=== PATIENT | female | born 1950 | race Caucasian/White ===

== ENCOUNTER 2017-05-13 10:54 | Emergency (ER) | payer MEDICARE, OTHER ==
[2017-05-13 11:02] VITALS: BP 180/87
--- NOTE | 2017-05-13 12:34 | ED Physician Documentation ---
History of Present Illness - Stated complaint Stated Complaint: BEE STING - Chief complaint Chief Complaint: Allergic Rx - History obtained from History obtained from: Patient - Additonal information Additional information: Appearing female who presents with a complaint of left foot swelling. She was stung by a bee 3 days ago and is concerned because of swelling of the left foot continues despite Benadryl and loratadine. She has no other systemic complaints. She did not have any symptoms of anaphylaxis at the time of the envenomation and has no history of any significant allergic reactions. Review of systems: For pertinent positive and negatives in the review of systems please see the history of present illness, otherwise all other systems have been reviewed and are negative. Dragon disclaimer: Parts of this medical record were created using voice recognition technology. Because of the inherent limitations of this system, occasional same sounding word substitutions do occur and persist despite proofreading. Please read the document for context. Review of Systems Musculoskeletal: reports: Extremity swelling PD PAST MEDICAL HISTORY - Past Medical History Past Medical History: Yes Cardiovascular: Hypertension - Past Surgical History Past Surgical History: Yes General: Appendectomy - Present Medications Home Medications: Ambulatory Orders Medication Instructions Recorded Confirmed Atorvastatin [Lipitor] 10 mg ORAL DAILY 05/13/17 05/13/17 Citalopram [CeleXA] 10 mg PO ONCE 05/13/17 05/13/17 Losartan [Cozaar] 25 mg PO ONCE 05/13/17 05/13/17 - Allergies Allergies/Adverse Reactions: Allergies Allergy/AdvReac Type Severity Reaction Status Date / Time Cephalosporins Allergy Rash Verified 05/13/17 11:01 Penicillins Allergy Anaphylaxis Verified 05/13/17 11:01 Sulfa (Sulfonamide Allergy Rash Verified 05/13/17 11:01 Antibiotics) tetracycline Allergy Rash Verified 05/13/17 11:01 - Social History Does the pt smoke?: No Smoking Status: Never smoker Does the pt drink ETOH?: Yes Does the pt have substance abuse?: No - Immunizations Immunizations are current?: Yes - POLST Patient has POLST: No PD ED PE NORMAL - Vitals Vital signs reviewed: Yes - General General: Alert and oriented X 3, No acute distress, Well developed/nourished - Derm Derm: Normal color - Extremities Extremities: Other (Examination of her left foot reveals a small amount of soft tissue swelling diffusely involving the foot but not the ankle. There is area of minimal erythema between her great and second toe.) - Neuro Neuro: Alert and oriented X 3 - Psych Psych: Normal mood, Normal affect Results - Vitals Vitals: Vital Signs - 24 hr 05/13/17 10:57 Temperature 36.8 C Heart Rate 69 Respiratory 16 Rate Blood Pressure 180/87 H O2 Saturation 99 Oxygen O2 Source Room air PD MEDICAL DECISION MAKING - ED course Complexity details: reviewed old records ED course: This patient has normal soft tissue swelling and erythema following a bee sting 3 days ago. Her physical exam fits the course of the natural progression of a distal extremity envenomation. I am not concerned about cellulitis. I recommended continued antihistamines, rest, and elevation and I think she should be seeing improvement soon. Disposition: To home Clinical impression: 1. Bee sting left foot with local allergic reaction Departure - Departure Disposition: 01 Home, Self Care Clinical Impression: Insect bites and stings Qualifiers: Encounter type: initial encounter Injury intent: accidental or unintentional Qualified Code(s): T63.481A - Toxic effect of venom of other arthropod, accidental (unintentional), initial encounter Condition: Good Instructions: ED Allergic Reaction Local Other
== END 2017-05-13 12:55 | disposition home or self-care (01) ==
LOC: ED 10:54
DX: T63.441A Toxic effect of venom of bees, accidental (unintentional), initial encounter (principal); I10 Essential (primary) hypertension
CPT/HCPCS: 99282; 99283

== ENCOUNTER 2024-01-11 23:46 | Emergency (ER) | payer MEDICARE, OTHER ==
[2024-01-12 00:26] LABS: BASOPHILS % (AUTO) 0.8 %; EOSINOPHILS % (AUTO) 0.2 %; HCT - HEMATOCRIT 45.5 % (37.0-47.0); HGB - HEMOGLOBIN 15.1 g/dL (12.0-16.0); LYMPHOCYTES # (AUTO) 2.4 10^3/uL (1.5-3.5); MEAN CORPUSCULAR HGB CONC 33.2 g/dL (32.0-36.0); MEAN CORPUSCULAR VOLUME 99.3 fL (81.0-99.0); MEAN PLATELET VOLUME 8.8 fL (7.9-10.8); MONOCYTES # (AUTO) 0.4 10^3/uL (0.0-1.0); MONOCYTES % (AUTO) 8.7 %; NEUTROPHILS % (AUTO) 41.1 %; PLT - PLATELET COUNT 237 10^3/uL (130-450); RED BLOOD COUNT 4.58 10^6/uL (4.20-5.40); RED CELL DISTRIBUTION WIDTH 12.5 % (12.0-15.0); WHITE BLOOD COUNT 4.8 x10^3/uL (4.8-10.8)
--- NOTE | 2024-01-12 00:26 | ED Physician Documentation ---
History of Present Illness - Stated complaint Stated Complaint: AFIB - Chief complaint Chief Complaint: Cardiac - History obtained from History obtained from: Patient - Additonal information Additional information: HPI from patient. Patient complains of "I am having an episode of A-fib" (per patient). Patient has history of atrial fibrillation and she takes Eliquis for this. She denies palpitations, chest pain, dyspnea, lightheadedness. Her description sounds like her atrial fibrillation is paroxysmal/episodic, and manifests (as it did tonight) with pain in her upper anterior neck and jaw (bilaterally). She says she also has an Apple Watch which alerts her to these episodes. She says the Apple watch was indicating this evening that her heart rates were as high as 134 bpm. PD PAST MEDICAL HISTORY - Past Medical History Past Medical History: Yes Cardiovascular: Hypertension, Atrial fibrillation - Past Surgical History Past Surgical History: Yes General: Appendectomy - Present Medications Home Medications: Ambulatory Orders Medication Instructions Recorded Confirmed Atorvastatin [Lipitor] 10 mg ORAL DAILY 05/13/17 01/12/24 Citalopram [CeleXA] 10 mg PO ONCE 05/13/17 05/13/17 Losartan [Cozaar] 25 mg PO ONCE 05/13/17 01/12/24 Apixaban [Eliquis] 5 mg PO BID 01/12/24 01/12/24 - Allergies Allergies/Adverse Reactions: Allergies Allergy/AdvReac Type Severity Reaction Status Date / Time Cephalosporins Allergy Rash Verified 01/11/24 23:59 Penicillins Allergy Anaphylaxis Verified 01/11/24 23:59 Sulfa (Sulfonamide Allergy Rash Verified 01/11/24 23:59 Antibiotics) tetracycline Allergy Rash Verified 01/11/24 23:59 - Social History Does the pt smoke?: No Smoking Status: Never smoker Does the pt drink ETOH?: Yes Does the pt have substance abuse?: No - Immunizations Immunizations are current?: Yes - POLST Patient has POLST: No PD ED PE NORMAL - Vitals Vital signs reviewed: Yes - General General: Alert and oriented X 3, No acute distress, Well developed/nourished - Respiratory Respiratory: No respiratory distress, Clear bilaterally - Abdomen Abdomen: Soft, Non tender - Extremities Extremities: No edema - Neuro Neuro: Alert and oriented X 3 PD ED PE EXPANDED - Cardiac Cardiac: Tachy, Irregularly irregular Results - Vitals Vitals: Oxygen O2 Source Room air - EKG (time done) #1 EKG releavant findings:: EKG personally interpreted by author of this note. Relevant findings are: Rate: Rate (enter#) (120) Rhythm: Atrial flutter [place]: LAD Intervals: Prolonged QT Ischemia: Q waves (II, III, aVF) Compare to prior EKG: Old EKG unavailable #2 EKG releavant findings:: EKG personally interpreted by author of this note. Relevant findings are: Rate: Rate (enter#) (52) Rhythm: Atrial fibrillation (no discernible p waves) [place]: LAD Intervals: Prolonged QT, Other (NSVICD with LAD) Ischemia: Normal ST segments, Q waves - Labs Labs: Laboratory Tests 01/12/24 01/12/24 01/12/24 00:23 00:23 00:23 WBC 4.8 RBC 4.58 Hgb 15.1 Hct 45.5 MCV 99.3 H MCH 33.0 H MCHC 33.2 RDW 12.5 Plt Count 237 MPV 8.8 Neut # (Auto) 2.0 Lymph # (Auto) 2.4 Door # (Auto) 0.4 Eos # (Auto) 0.0 Baso # (Auto) 0.0 Absolute Nucleated RBC 0.00 Nucleated RBC % 0.0 Sodium 143 Potassium 3.8 Chloride 107 Carbon Dioxide 24 Anion Gap 12.0 BUN 16 Creatinine 0.8 Estimated GFR (MDRD) 70 L Glucose 108 H Calcium 10.0 Total Bilirubin 1.3 H AST 22 ALT 28 Alkaline Phosphatase 59 Troponin I High Sens 4.7 Total Protein 7.4 Albumin 4.9 Globulin 2.5 Albumin/Globulin Ratio 2.0 Lipase 46 TSH 2.94 - Rads (name of study) chest xray Relevant Findings:: Prelim report reviewed, See rad report PD Medical Decision Making - ED course Complexity details: re-evaluated patient, considered differential, d/w patient ED course: Essentially normal CBC (two red cell indices are abnormal in otherwise normal CBC), ER abdominal panel, and normal TSH and hs-cTn. Unremarkable CXR. MARANDA on arrival, given 15mg IV cardizem with modest and transient improvement, but responded well to second dose of IV cardizem (10mg) which resulted in 52 bpm on monitor. Given 1 liter NS for a few soft BP readings but no hypotensive readings during stay. Patient says her resting heart rate is typically in the mid-50s bpm. The second/repeat EKG nearly appears to be sinus bradycardia, but a few beats don't quite march out and I do not confidently see discernible p waves. However, given that she is already on appropriate anticoagulation for atrial fibrillation, there would be no change in management at this point whether she is back in sinus rhythm vs rate-controlled atrial fibrillation. Results d/w patient, return precautions reviewed, advised to follow up with her cardiovascular radiologic technologist. Departure - Departure Disposition: Home, Self Care Clinical Impression: Atrial fibrillation Qualifiers: Atrial fibrillation type: paroxysmal Qualified Code(s): I48.0 - Paroxysmal atrial fibrillation Condition: Good Instructions: ED Afib Comments: There were no concerning findings on tonight's blood tests and chest xray. Both the initial EKG as well as the repeat EKG are consistent with atrial fibrillation, but the initial high heart rate improved significantly after the second dose of diltiazem (rate-controlling medication given through your IV). Since you are already on appropriate blood-thinning medication, it is not important that we get you out of atrial fibrillation as long as the rate is controlled, that you're test results do not suggest a more serious problem (such as a heart attack), and that your blood pressures are within the normal range. Forms: PCP List Discharge Date/Time: 01/12/24 03:40
--- NOTE | 2024-01-12 00:41 | XRAY Report ---
PROCEDURE: Chest 1V INDICATIONS: Chest pain TECHNIQUE: One view of the chest was acquired. COMPARISON: None. FINDINGS: Surgical changes and devices: None. Lungs and pleura: Low lung volumes. No consolidation or pleural effusion Mediastinum: Normal heart size Bones and chest wall: Right humeral surgical anchors. Degenerative changes. IMPRESSION: Limited single view portable radiograph with low lung volumes. No acute abnormality. Reviewed by: Abel Gill MD on 01/12/2024 12:40 AM PDT Approved by: Abel Gill MD on 01/12/2024 12:40 AM PDT Station ID: [id number]
[2024-01-12 00:45] LABS: ALBUMIN 4.9 g/dL (3.2-5.5); BILIRUBIN,TOTAL 1.3 mg/dL (0.2-1.0); CREATININE 0.8 mg/dL (0.6-1.3); POTASSIUM 3.8 mmol/L (3.5-4.5); TOTAL PROTEIN 7.4 g/dL (6.4-8.9)
[2024-01-12 00:47] LABS: TROPONIN I HIGH SENSITIVITY 4.7 ng/L (2.3-14.8)
[2024-01-12] MEDS: diltiaZEM INJ 5 MG/ML VIAL IVP STA ×2 (00:58→02:17)
[2024-01-12] MEDS: SODIUM CHLORIDE 0.9% 1,000 ML IV STA (02:58)
[2024-01-12 03:36] VITALS: BP 129/59; O2SAT 99
== END 2024-01-12 03:40 | disposition home or self-care (01) ==
LOC: ED 23:46
DX: I48.0 Paroxysmal atrial fibrillation (principal); I10 Essential (primary) hypertension; Z79.01 Long term (current) use of anticoagulants; Z79.899 Other long term (current) drug therapy
CPT/HCPCS: 36415; 80053; 83690; 84443; 84484; 85025; 93005; 96374; 96376; 99283

== ENCOUNTER 2024-03-30 02:33 | Emergency (ER) | payer MEDICARE, OTHER ==
--- NOTE | 2024-03-30 02:48 | ED Physician Documentation ---
History of Present Illness - Stated complaint Stated Complaint: HIGH HR - Chief complaint Chief Complaint: Cardiac - History obtained from History obtained from: Patient - Additonal information Additional information: 73yF with pmh afib on eliquis p/w episode of heart palpitations starting when going to bathroom late tonight. patient endorses alcohol use as well as ambien. compliant with eliquis. denies fever/malaise, soa, cp, nausea, dizziness. PD PAST MEDICAL HISTORY - Past Medical History Past Medical History: Yes Cardiovascular: Hypertension, Atrial fibrillation - Past Surgical History Past Surgical History: Yes General: Appendectomy - Present Medications Home Medications: Ambulatory Orders Medication Instructions Recorded Confirmed Atorvastatin [Lipitor] 10 mg ORAL DAILY 05/13/17 03/30/24 Citalopram [CeleXA] 10 mg PO DAILY 05/13/17 03/30/24 Losartan [Cozaar] 25 mg PO DAILY 05/13/17 03/30/24 Apixaban [Eliquis] 5 mg PO BID 01/12/24 03/30/24 Propafenone [Rythmol] 150 mg PO DAILY 03/30/24 03/30/24 Zolpidem [Ambien] 5 mg PO HS PRN 03/30/24 03/30/24 amLODIPine [Norvasc] 5 mg PO DAILY 03/30/24 03/30/24 - Allergies Allergies/Adverse Reactions: Allergies Allergy/AdvReac Type Severity Reaction Status Date / Time Cephalosporins Allergy Rash Verified 03/30/24 02:42 cortisone Allergy Rash Verified 03/30/24 03:12 Penicillins Allergy Anaphylaxis Verified 03/30/24 02:42 Sulfa (Sulfonamide Allergy Rash Verified 03/30/24 02:42 Antibiotics) tetracycline Allergy Rash Verified 03/30/24 02:42 amitriptyline AdvReac Hallucinati Verified 03/30/24 03:12 ons Beta-Blockers AdvReac Respiratory Verified 03/30/24 03:12 (Beta-Adrenergic [place] pantoprazole AdvReac Headache Verified 03/30/24 03:12 pseudoephedrine AdvReac Unknown Verified 03/30/24 03:12 - Social History Does the pt smoke?: No Smoking Status: Never smoker Does the pt drink ETOH?: Yes Does the pt have substance abuse?: No - Immunizations Immunizations are current?: Yes - POLST Patient has POLST: No PD ED PE NORMAL - Vitals Vital signs reviewed: Yes - General General: Alert and oriented X 3, No acute distress, Well developed/nourished - HEENT HEENT: Atraumatic, PERRL, EOMI - Neck Neck: Supple, no meningeal sign - Cardiac Cardiac: Other (tachycardic rate, regular rhythm) - Respiratory Respiratory: No respiratory distress, Clear bilaterally - Abdomen Abdomen: Non tender, Non distended - Derm Derm: Normal color, Warm and dry - Extremities Extremities: No deformity, No edema Results - Vitals Vitals: Vital Signs - 24 hr 03/30/24 03/30/24 02:40 03:00 Temperature 36.4 C L Heart Rate 126 H 67 Respiratory 18 19 Rate Blood Pressure 138/81 H 122/68 O2 Saturation 100 98 Oxygen O2 Source Room air - EKG (time done) 0240 EKG releavant findings:: EKG personally interpreted by author of this note. Relevant findings are: Rate: Rate (enter#) (121) Rhythm: Atrial flutter 0252 EKG releavant findings:: EKG personally interpreted by author of this note. Relevant findings are: Rate: Rate (enter#) (62) Rhythm: NSR [place]: Other (LAFB) Ischemia: Q waves (anterior leads) - Labs Labs: Laboratory Tests 03/30/24 03/30/24 02:48 02:48 WBC 4.3 L RBC 4.49 Hgb 14.6 Hct 44.0 MCV 98.0 MCH 32.5 H MCHC 33.2 RDW 12.2 Plt Count 218 MPV 8.3 Neut # (Auto) 1.6 Lymph # (Auto) 2.2 [place] # (Auto) 0.4 Eos # (Auto) 0.0 Baso # (Auto) 0.0 Absolute Nucleated RBC 0.00 Nucleated RBC % 0.0 Sodium 143 Potassium 3.6 Chloride 106 Carbon Dioxide 28 Anion Gap 9.0 BUN 17 Creatinine 0.8 Estimated GFR (MDRD) 70 L Glucose 106 H Calcium 9.8 Total Bilirubin 1.5 H AST 21 ALT 29 Alkaline Phosphatase 57 Total Protein 7.2 Albumin 4.5 Globulin 2.7 Albumin/Globulin Ratio 1.7 Lipase 79 PD Medical Decision Making - ED course ED course: 73yF p/w brief, self resolving episode of a flutter in the ED. she has normal labwork and cxr looks benign. repeat ekg nsr. plan to f/u outpatient for cardiac ablation tomorrow. return precautions given. Departure - Departure Disposition: 01 Home, Self Care Clinical Impression: Atrial flutter Condition: Stable Instructions: AFL/Afib Comments: You were seen in the emergency department for heart arrhythmia that resolved without medications. Your labwork and chest xray looked good. Please follow-up for cardiac ablation tomorrow and return to the emergency department if you have any new or worsening symptoms or other concerns. Forms: PCP List
[2024-03-30] MEDS: METOPROLOL 5 MG/5 ML VIAL IVP STA (02:51)
[2024-03-30 02:53] LABS: BASOPHILS % (AUTO) 0.9 %; EOSINOPHILS % (AUTO) 0.7 %; HGB - HEMOGLOBIN 14.6 g/dL (12.0-16.0); LYMPHOCYTES # (AUTO) 2.2 10^3/uL (1.5-3.5); LYMPHOCYTES % (AUTO) 52.1 %; MEAN CORPUSCULAR HEMOGLOBIN 32.5 pg (27.0-31.0); MEAN CORPUSCULAR HGB CONC 33.2 g/dL (32.0-36.0); MEAN PLATELET VOLUME 8.3 fL (7.9-10.8); MONOCYTES # (AUTO) 0.4 10^3/uL (0.0-1.0); NEUTROPHILS # (AUTO) 1.6 10^3/uL (1.5-6.6); NEUTROPHILS % (AUTO) 36.3 %; PLT - PLATELET COUNT 218 10^3/uL (130-450); RED BLOOD COUNT 4.49 10^6/uL (4.20-5.40); RED CELL DISTRIBUTION WIDTH 12.2 % (12.0-15.0); WHITE BLOOD COUNT 4.3 x10^3/uL (4.8-10.8)
[2024-03-30] MEDS: diltiaZEM INJ 5 MG/ML VIAL IVP STA (03:00)
[2024-03-30] MEDS: SODIUM CHLORIDE 0.9% 500 ML IV STA (03:02)
[2024-03-30 03:10] LABS: ALBUMIN 4.5 g/dL (3.2-5.5); ALBUMIN/GLOBULIN RATIO 1.7 (1.0-2.2); BILIRUBIN,TOTAL 1.5 mg/dL (0.2-1.0); CALCIUM 9.8 mg/dL (8.5-10.3); CREATININE 0.8 mg/dL (0.6-1.3); POTASSIUM 3.6 mmol/L (3.5-4.5); TOTAL PROTEIN 7.2 g/dL (6.4-8.9)
[2024-03-30 03:24] VITALS: O2SAT 98
[2024-03-30 04:05] VITALS: BP 122/59
--- NOTE | 2024-03-30 09:22 | XRAY Report ---
PROCEDURE: Chest 1V INDICATIONS: Chest Pain TECHNIQUE: One view of the chest was acquired. COMPARISON: Chest radiograph 6 01/12/2024. FINDINGS: Surgical changes and devices: Surgical anchors are seen in the right humeral head. Lungs and pleura: No pleural effusions or pneumothorax. Lungs are clear. Mediastinum: Mediastinal contours appear normal. Heart size is normal. Bones and chest wall: No suspicious bony lesions. Overlying soft tissues appear unremarkable. IMPRESSION: No acute cardiopulmonary process. Reviewed by: Wilner Cardenas MD on 03/30/2024 9:20 AM PDT Approved by: Wilner Cardenas MD on 03/30/2024 9:20 AM PDT Station ID: [id number]
== END 2024-03-30 03:53 | disposition home or self-care (01) ==
LOC: ED 02:33
DX: I48.92 Unspecified atrial flutter (principal); I48.91 Unspecified atrial fibrillation; Z79.01 Long term (current) use of anticoagulants; I10 Essential (primary) hypertension; Z79.899 Other long term (current) drug therapy
CPT/HCPCS: 36415; 80053; 83690; 85025; 93005; 96360; 99283